=== PATIENT | female | born 1975 | race Caucasian/White ===

== ENCOUNTER 2016-10-24 12:01 | Emergency (ER) | payer OTHER ==
[~2016-10-24] VITALS: Ht 170.2 cm; Wt 70.3 kg
--- NOTE | ~2016-10-24 | EKG ---
[place] [id number] [facility] [place] [place] [employer] [address] ELECTROCARDIOGRAM REPORT Name: SANTIAGOVIDA Room #: DEP SANIYA Meneses#: [id number] Admission: 10/24/16 Attend Phys: Discharge: 10/24/16 Date of : 71 Report #: [id number] THIS REPORT FOR: //name// [facility] ED Test Date: 2016-10-24 Test Time: 12:14:30 Pat Name: VIDA SANTIAGO Department: Room: Gender: F [employer]: : 1975 Requested By: Radha Osullivan Order Number: [id number] MD: Esequiel Barillas Measurements Intervals [place] Rate: 78 P: 59 OR: 130 QRS: 63 QRSD: 99 T: 3 QT: 402 QTc: 458 Interpretive Statements Sinus rhythm No significant abnormality No previous ECG available for comparison Electronically Signed On 10-25-2016 7:41:36 CDT by Esequiel Barillas [email or web address] <ELECTRONICALLY SIGNED> By: Esequiel Barillas MD, [facility] 10/25/16 0741 1214 1214 Esequiel Barillas MD, FACC /EPI
[2016-10-24 12:20] LABS: ABSOLUTE NEUTROPHILS 5.1 thou/uL (1.4-8.2); BASOPHILS 0.7 % (0.0-2.0); EOSINOPHILS 0.9 % (0.0-3.0); HEMATOCRIT 39.9 % (37.0-47.0); HEMOGLOBIN 13.9 gm/dL (12.0-15.0); LYMPHOCYTES 28.7 % (24.0-44.0); MCH 29.8 pg (26.0-34.0); MCHC 34.8 g/dL (28.0-37.0); MCV 85.5 fL (80.0-100.0); MONOCYTES 7.2 % (1.0-8.0); PLATELET COUNT 314 thou/uL (150-400); POLYS 62.5 % (36.0-66.0); RBC 4.66 mil/uL (4.20-5.00); RDW 12.8 % (10.5-14.5); WBC 8.1 thou/uL (4.0-11.0)
[2016-10-24 12:21] LABS: MANUAL DIFF NO
[2016-10-24 12:31] LABS: ANION GAP 10 mmol/L (7-16); BUN 15 mg/dL (7-18); CALCIUM 9.3 mg/dL (8.5-10.1); CHLORIDE 103 mmol/L (98-107); CO2 24 mmol/L (21-32); CREATININE 0.7 mg/dL (0.6-1.0); GLUCOSE 129 mg/dL (74-106); POTASSIUM 3.3 mmol/L (3.5-5.1); SODIUM 137 mmol/L (136-145)
[2016-10-24 12:35] LABS: TROPONIN-I < 0.04 ng/mL (<0.04-0.07)
[2016-10-24] MEDS ORDERED: VALIUM5 MG PO (12:47)
[2016-10-24 13:13] VITALS: BP 119/68
== END 2016-10-24 13:42 | disposition home or self-care (01) ==
LOC: ER 12:01
PROVIDERS: Emergency Medicine
DX: R07.89 Other chest pain (principal); F41.9 Anxiety disorder, unspecified; E87.6 Hypokalemia; R20.2 Paresthesia of skin; Z98.890 Other specified postprocedural states; Z88.1 Allergy status to other antibiotic agents; Z88.5 Allergy status to narcotic agent